=== PATIENT | female | born 1965 | race Caucasian/White ===

== ENCOUNTER 2022-02-10 11:59 | Emergency (ER) | payer OTHER ==
[2022-02-10] MEDS ORDERED: Bacitracin 1 PK ONE ×2 (13:13→14:16)
[2022-02-10] MEDS ORDERED: Silver Sulfadiazine 50 GM TUBE ONE (13:13)
[2022-02-10] MEDS ORDERED: Boostrix 0.5 ML (Tdap) VIAL (>/=7 yrs of age) ONE (13:13)
[2022-02-10] MEDS ORDERED: Silver Nitrate Application 1 EACH ONE (13:14)
== END 2022-02-10 14:18 | disposition home or self-care (01) ==
LOC: BURERS 11:59
DX: T23.231A Burn of second degree of multiple right fingers (nail), not including thumb, initial encounter (principal); T31.0 Burns involving less than 10% of body surface; Z23 Encounter for immunization; X15.0XXA Contact with hot stove (kitchen), initial encounter
CPT/HCPCS: 90471; 90715